=== PATIENT | male | born 1990 | race African-American/Black ===

== ENCOUNTER 2019-05-21 23:36 | Emergency (ER) | payer OTHER ==
[~2019-05-21] VITALS: Ht 175.3 cm; Wt 69.0 kg
[2019-05-22] MEDS ORDERED: AZITHROMYCIN 500 MG TABLET PO ONE (03:45)
[2019-05-22] MEDS ORDERED: CEFTRIAXONE SODIUM 250 MG/VIAL IM ONE (03:45)
[2019-05-22] MEDS ORDERED: ONDANSETRON 4MG ODT PO NR (03:45)
[2019-05-22 04:05] LABS: CLARITY URINE TURBID (CLEAR); COLOR URINE YELLOW (YELLOW); KETONES URINE NEGATIVE (NEGATIVE); LEUKOCYTE ESTERASE URINE 3+ (NEGATIVE); NITRITE URINE NEGATIVE (NEGATIVE); OCCULT BLOOD URINE 2+ (NEGATIVE); PROTEIN URINE 1+ (NEGATIVE); SPECIFIC GRAVITY URINE 1.031 (1.005-1.030)
[2019-05-22 04:15] VITALS: BP 111/54
== END 2019-05-22 04:17 | disposition home or self-care (01) ==
LOC: ER 23:36
DX: N45.1 Epididymitis (principal); F12.10 Cannabis abuse, uncomplicated; F17.200 Nicotine dependence, unspecified, uncomplicated; Z11.3 Encounter for screening for infections with a predominantly sexual mode of transmission; V00.131A Fall from skateboard, initial encounter; Y93.51 Activity, roller skating (inline) and skateboarding; Y92.89 Other specified places as the place of occurrence of the external cause; Y99.8 Other external cause status
CPT/HCPCS: 81003; 87086; 96372; 99283; J0696; Q0162

== ENCOUNTER 2019-06-15 02:34 | Emergency (ER) | payer OTHER ==
[~2019-06-15] VITALS: Ht 175.3 cm; Wt 66.0 kg
[2019-06-15] MEDS ORDERED: HYDROCODONE/ACETAMINOPHEN 10/325MG TABLET PO ONE (05:45)
[2019-06-15 06:48] VITALS: BP 116/76
== END 2019-06-15 06:49 | disposition home or self-care (01) ==
LOC: ER 02:34
DX: S60.222A Contusion of left hand, initial encounter (principal); F17.200 Nicotine dependence, unspecified, uncomplicated; X58.XXXA Exposure to other specified factors, initial encounter; Y93.89 Activity, other specified; Y92.89 Other specified places as the place of occurrence of the external cause; Y99.8 Other external cause status
CPT/HCPCS: 73130; 99284

== ENCOUNTER 2019-06-17 19:11 | Emergency (ER) | payer OTHER ==
[~2019-06-17] VITALS: Ht 175.3 cm; Wt 68.0 kg
[2019-06-17] MEDS ORDERED: FAMOTIDINE 20MG TABLET PO ONE (21:15)
[2019-06-17] MEDS ORDERED: TETANUS, DIPHTHERIA, PERTUSSIS VAC/PF 0.5ML (>7YR OLD) IM ONE (21:15)
[2019-06-17] MEDS ORDERED: KETOROLAC 30MG/ML VIAL IM ONE (21:15)
[2019-06-17 21:54] VITALS: BP 125/96
== END 2019-06-17 21:55 | disposition home or self-care (01) ==
LOC: ER 19:11
DX: H72.91 Unspecified perforation of tympanic membrane, right ear (principal); F17.200 Nicotine dependence, unspecified, uncomplicated
CPT/HCPCS: 73130; 90471; 90715; 96375; 99283; J1885

== ENCOUNTER 2019-06-29 03:01 | Emergency (ER) | payer OTHER ==
[~2019-06-29] VITALS: Ht 175.3 cm; Wt 70.0 kg
[2019-06-29 03:14] VITALS: BP 120/66
== END 2019-06-29 04:44 | disposition left against medical advice (07) ==
LOC: ER 03:01
DX: R51 Headache (principal); Z53.21 Procedure and treatment not carried out due to patient leaving prior to being seen by health care provider

== ENCOUNTER 2019-08-08 14:46 | Emergency (ER) | payer MEDICAID, OTHER ==
[~2019-08-08] VITALS: Ht 175.3 cm; Wt 84.0 kg
[2019-08-08 15:20] VITALS: BP 130/73
[2019-08-08] MEDS ORDERED: TETANUS, DIPHTHERIA, PERTUSSIS VAC/PF 0.5ML (>7YR OLD) IM ONE (15:45)
[2019-08-08] MEDS ORDERED: IBUPROFEN 600MG TABLET PO ONE (16:15)
[2019-08-08] MEDS ORDERED: LIDOCAINE HCL/PF 1% 10 MG/ML 5ML VIAL IJ ONE (16:15)
== END 2019-08-08 17:46 | disposition home or self-care (01) ==
LOC: ER 14:46
DX: S01.412A Laceration without foreign body of left cheek and temporomandibular area, initial encounter (principal); S00.83XA Contusion of other part of head, initial encounter; Y04.0XXA Assault by unarmed brawl or fight, initial encounter; Y93.89 Activity, other specified; Y92.89 Other specified places as the place of occurrence of the external cause
CPT/HCPCS: 12011; 73130; 90471; 90715; 99283; J3490

== ENCOUNTER 2019-08-19 16:09 | Emergency (ER) | payer MEDICAID, OTHER ==
[~2019-08-19] VITALS: Ht 175.3 cm; Wt 73.0 kg
[2019-08-19] MEDS ORDERED: KETOROLAC 60MG/2ML VIAL IM ONE (18:30)
[2019-08-19 20:40] VITALS: BP 114/71
== END 2019-08-19 21:02 | disposition home or self-care (01) ==
LOC: ER 16:30
DX: S00.83XA Contusion of other part of head, initial encounter (principal); S60.221A Contusion of right hand, initial encounter; F17.200 Nicotine dependence, unspecified, uncomplicated; Z98.890 Other specified postprocedural states; Y08.89XA Assault by other specified means, initial encounter; Y93.89 Activity, other specified; Y92.89 Other specified places as the place of occurrence of the external cause; Y99.8 Other external cause status
CPT/HCPCS: 73130; 96372; 99283; J1885

== ENCOUNTER 2022-08-16 11:24 | Emergency (ER) | payer MEDICAID ==
[~2022-08-16] VITALS: Ht 177.8 cm; Wt 75.0 kg
[2022-08-16 11:50] VITALS: BP 122/73
[2022-08-16] MEDS ORDERED: ALBU6.7H3 INH (13:30)
[2022-08-16] MEDS ORDERED: OMEP20TA23 MT (13:30)
== END 2022-08-16 13:47 | disposition home or self-care (01) ==
LOC: ER 11:29
DX: Z76.0 Encounter for issue of repeat prescription (principal); K21.9 Gastro-esophageal reflux disease without esophagitis; J45.909 Unspecified asthma, uncomplicated
CPT/HCPCS: 99283

== ENCOUNTER 2022-08-25 00:54 | Emergency (ER) | payer MEDICAID ==
[~2022-08-25] VITALS: Ht 177.8 cm; Wt 66.3 kg
[~2022-08-25 00:54] MED LIST: ALBU6.7H3 INH; OMEP20TA23 MT
[2022-08-25] MEDS ORDERED: HYDROCODONE/ACETAMINOPHEN 5/325MG TABLET PO STA (01:23)
[2022-08-25] MEDS ORDERED: MAGNESIUM/ALUMINUM HYDROXIDE/SIMETHICONE 30ML UDC PO STA (01:23)
[2022-08-25 02:40] VITALS: BP 146/82
[2022-08-25 02:45] LABS: CHLORIDE 105 mEq/L (98-107)
[2022-08-25 03:21] LABS: RED BLOOD CELL COUNT 4.94 mill/uL (4.7-6.1)
[2022-08-25 03:22] LABS: BASOPHILS % 0.9 % (0.0-2.0); HEMATOCRIT. 42.6 % (42.0-52.0); HEMOGLOBIN. 14.2 g/dL (14.0-18.0); LYMPHOCYTES % 36.7 % (20.0-50.0); MEAN CORPUSCULAR HEMOGLOBIN 28.7 pg (28.0-32.0); MEAN PLATELET VOLUME 8.2 fl (7.4-10.4); MONOCYTES % 8.4 % (2.0-8.0); PLATELET 205 x1000/uL (130-400); RED CELL DISTRIBUTION WIDTH 13.1 % (11.6-14.6)
[2022-08-25] MEDS ORDERED: HYDR-4001 MT (04:00)
== END 2022-08-25 04:29 | disposition home or self-care (01) ==
LOC: ER 00:54
DX: K29.00 Acute gastritis without bleeding (principal); K21.9 Gastro-esophageal reflux disease without esophagitis
CPT/HCPCS: 36415; 76705; 80053; 85025; 99284

== ENCOUNTER 2022-08-30 20:45 | Emergency (ER) | payer MEDICAID ==
[~2022-08-30] VITALS: Ht 177.8 cm; Wt 75.0 kg
[~2022-08-30 20:45] MED LIST changes: +HYDR-4001 MT
[2022-08-30 21:11] VITALS: BP 195/153
[2022-08-30] MEDS ORDERED: DICYCLOMINE 10 MG/5 ML ORAL SYR PO STA (23:02)
[2022-08-30] MEDS ORDERED: VISCOUS LIDOCAINE 2% 15 ML UDC PO STA (23:02)
[2022-08-30] MEDS ORDERED: MAGNESIUM/ALUMINUM HYDROXIDE/SIMETHICONE 30ML UDC PO STA (23:02)
[2022-08-30] MEDS ORDERED: FAMO20TA8 PO (23:09)
[2022-08-30] MEDS ORDERED: PANTOPRAZOLE 40MG DR TABLET PO ONE (23:15)
== END 2022-08-30 23:29 | disposition home or self-care (01) ==
LOC: ER 20:45
DX: K21.9 Gastro-esophageal reflux disease without esophagitis (principal)
CPT/HCPCS: 99281

== ENCOUNTER 2024-07-04 23:44 | Emergency (ER) | payer MEDICAID, OTHER ==
[~2024-07-04] VITALS: Ht 177.8 cm; Wt 68.9 kg
[~2024-07-04 23:44] MED LIST changes: +FAMO20TA8 PO
[2024-07-04 23:48] VITALS: O2SAT 100
[2024-07-04 23:50] VITALS: TEMP 98.3; O2SAT 100
[2024-07-05] MEDS ORDERED: ACETAMINOPHEN 500MG TABLET PO ONE (01:00)
[2024-07-05] MEDS ORDERED: CHLO473M2 MT (01:56)
[2024-07-05] MEDS ORDERED: ACET-2708 MT (01:56)
[2024-07-05 02:34] VITALS: BP 122/77; PULSE 62; RESP 18
[2024-07-05] MEDS: CHLORHEXIDINE GLUCONATE 0.12% ORAL MOUTHWASH SSP SCH (02:34)
[2024-07-05] MEDS: HYDROCODONE/ACETAMINOPHEN 5/325MG TABLET PO ONE (02:34)
[2024-07-05] MEDS: TETANUS, DIPHTHERIA, PERTUSSIS VAC/PF 0.5ML (>10YR OLD) IM ONE (02:37)
== END 2024-07-05 05:08 | disposition home or self-care (01) ==
LOC: ER 23:44
DX: S00.83XA Contusion of other part of head, initial encounter (principal); S40.011A Contusion of right shoulder, initial encounter; K21.9 Gastro-esophageal reflux disease without esophagitis; Z79.899 Other long term (current) drug therapy; X58.XXXA Exposure to other specified factors, initial encounter; Y93.89 Activity, other specified; Y92.89 Other specified places as the place of occurrence of the external cause; Y99.8 Other external cause status
CPT/HCPCS: 70486; 71045; 73030; 90471; 90715; 99285

== ENCOUNTER 2024-08-11 00:07 | Emergency (ER) | payer MEDICAID, OTHER ==
[~2024-08-11] VITALS: Ht 177.8 cm; Wt 84.0 kg
[~2024-08-11 00:07] MED LIST changes: +ACET-2708 MT; +CHLO473M2 MT
[2024-08-11 00:15] VITALS: BP 140/80; RESP 18; TEMP 98; O2SAT 100
[2024-08-11] MEDS ORDERED: ONDANSETRON 4MG ODT PO STA (00:16)
[2024-08-11] MEDS ORDERED: DICYCLOMINE 10 MG/5 ML ORAL SYR PO STA (00:16)
[2024-08-11] MEDS ORDERED: MAGNESIUM/ALUMINUM HYDROXIDE/SIMETHICONE 30ML UDC PO STA (00:16)
[2024-08-11 00:19] VITALS: PULSE 101; O2SAT 100
[2024-08-11 01:15] LABS: BASOPHILS % 0.8 % (0.0-2.0); EOSINOPHILS % 3.8 % (0.0-5.0); HEMATOCRIT. 46.2 % (42.0-52.0); HEMOGLOBIN. 15.4 g/dL (14.0-18.0); LYMPHOCYTES % 31.8 % (20.0-50.0); MEAN CORPUSCULAR HEMOGLOBIN 29.4 pg (28.0-32.0); MEAN CORPUSCULAR HGB CONC 33.3 g/dL (31.0-37.0); MEAN CORPUSCULAR VOLUME 88.3 fL (80.0-94.0); MONOCYTES % 9.2 % (2.0-8.0); NEUTROPHILS % 54.4 % (40.0-76.0); PLATELET 213 x1000/uL (130-400); RED BLOOD CELL COUNT 5.23 mill/uL (4.7-6.1); RED CELL DISTRIBUTION WIDTH 13.5 % (11.6-14.6); WHITE BLOOD COUNT 10.4 x1000/uL (4.5-11.0)
[2024-08-11 01:20] LABS: CARBON DIOXIDE 25 mEq/L (21-32); CHLORIDE 103 mEq/L (98-107); POTASSIUM 3.7 mEq/L (3.5-5.1); SODIUM 135 mEq/L (136-145)
[2024-08-11 01:21] LABS: CALCIUM 10.4 mg/dL (8.7-10.4)
[2024-08-11 01:25] LABS: CREATININE 1.3 mg/dL (0.6-1.3)
[2024-08-11 01:26] LABS: GLUCOSE 114 mg/dL (70-105); UREA NITROGEN BLOOD 17 mg/dL (9-23)
[2024-08-11 01:27] LABS: ALANINE AMINOTRANSFERASE 52 IU/L (10-49); ASPARTATE AMINOTRANSFERASE 41 IU/L (<34)
[2024-08-11 01:28] LABS: BILIRUBIN DIRECT 0.3 mg/dL (<=3.0); BILIRUBIN TOTAL 0.9 mg/dL (0.1-1.0); PROTEIN TOTAL 8.6 g/dL (6.0-8.3)
[2024-08-11] MEDS ORDERED: ONDA4TAB50 MT (02:59)
[2024-08-11] MEDS ORDERED: FAMO-135 MT (02:59)
[2024-08-11] MEDS ORDERED: MAG355OR21 MT (02:59)
[2024-08-11] MEDS: MAGNESIUM/ALUMINUM HYDROXIDE/SIMETHICONE 30ML UDC PO NR (03:03)
[2024-08-11] MEDS: ONDANSETRON 4MG ODT PO NR (03:03)
[2024-08-11] MEDS: DICYCLOMINE HCL 10MG CAPSULE PO NR (03:03)
[2024-08-12] MEDS ORDERED: LIDO700A30 TP (10:26)
[2024-08-12] MEDS ORDERED: ACET-2708 MT (10:26)
== END 2024-08-11 03:15 | disposition home or self-care (01) ==
LOC: ER 00:07
DX: R10.9 Unspecified abdominal pain (principal); Z79.899 Other long term (current) drug therapy; Z98.890 Other specified postprocedural states
CPT/HCPCS: 99284; 80076; 80048; 83690; 85025; 36415; Q0162

== ENCOUNTER 2024-08-12 07:52 | Emergency (ER) | payer MEDICAID, OTHER ==
[~2024-08-12] VITALS: Ht 177.8 cm; Wt 66.0 kg
[~2024-08-12 07:52] MED LIST changes: +FAMO-135 MT; +MAG355OR21 MT; +ONDA4TAB50 MT
[2024-08-12 07:57] VITALS: O2SAT 100
[2024-08-12 08:02] VITALS: PULSE 95; O2SAT 100
[2024-08-12 10:14] LABS: HEMATOCRIT 45.7 % (42.0-52.0); HEMOGLOBIN 15.3 g/dL (14.0-18.0); MEAN CORPUSCULAR HEMOGLOBIN 29.5 pg (28.0-32.0); MEAN CORPUSCULAR HGB CONC 33.4 g/dL (31.0-37.0); MEAN CORPUSCULAR VOLUME 88.3 fL (80.0-94.0); PLATELET 202 x1000/uL (130-400); RED BLOOD CELL COUNT 5.18 mill/uL (4.7-6.1); RED CELL DISTRIBUTION WIDTH 13.5 % (11.6-14.6); WHITE BLOOD COUNT 8.5 x1000/uL (4.5-11.0)
[2024-08-12] MEDS ORDERED: LIDO700A30 TP (10:26)
[2024-08-12] MEDS ORDERED: ACET-2708 MT (10:26)
[2024-08-12 10:33] VITALS: TEMP 97.9
[2024-08-12] MEDS: ACETAMINOPHEN 500MG TABLET PO ONE (10:33)
[2024-08-12 10:38] VITALS: BP 130/90; RESP 16
[2024-08-12] MEDS: LIDOCAINE 5% PATCH TOP SCH (10:38)
== END 2024-08-12 11:07 | disposition home or self-care (01) ==
LOC: ER 08:03
DX: S16.1XXA Strain of muscle, fascia and tendon at neck level, initial encounter (principal); S40.021A Contusion of right upper arm, initial encounter; Z98.890 Other specified postprocedural states; Z79.899 Other long term (current) drug therapy; V19.9XXA Pedal cyclist (driver) (passenger) injured in unspecified traffic accident, initial encounter; Y93.89 Activity, other specified; Y92.89 Other specified places as the place of occurrence of the external cause; Y99.8 Other external cause status
CPT/HCPCS: 85027; 36415; 99283; Z7610

== ENCOUNTER 2024-11-20 11:35 | Emergency (ER) | payer OTHER ==
[~2024-11-20] VITALS: Ht 177.8 cm; Wt 74.0 kg
[~2024-11-20 11:35] MED LIST changes: +LIDO700A30 TP
[2024-11-20 11:39] VITALS: BP 167/83; PULSE 89; RESP 16; TEMP 37.1; O2SAT 100
[2024-11-20] MEDS: LIDOCAINE HCL 1% 20ML VIAL INFIL ONE (13:50)
== END 2024-11-20 14:07 | disposition home or self-care (01) ==
LOC: ER 11:42
DX: S01.511A Laceration without foreign body of lip, initial encounter (principal); Y08.89XA Assault by other specified means, initial encounter; Y93.89 Activity, other specified; Y92.89 Other specified places as the place of occurrence of the external cause; Y99.8 Other external cause status
CPT/HCPCS: 40650; 99284; J3490; Z7610 ×2